=== PATIENT | male | born 1985 | race Caucasian/White ===

== ENCOUNTER 2016-05-30 14:22 | Emergency (ER) | payer MEDICAID ==
[~2016-05-30] VITALS: Wt 80.0 kg
--- NOTE | 2016-05-30 15:30 | ERD ---
ER Documentation Chief Complaint Date/Time DATE: 05/30/16 TIME: 15:29 Chief Complaint BILATERAL LEG PAIN AND LOW BACKPAIN FOR A MONTH. NO TRAUMA PER FAMILY HPI This patient is a 31-year-old male with history of long-standing diabetes type 2 and developmental delays presenting to the emergency department for intermittent tingling in bilateral feet which has been ongoing for 2 months. The mother's bring the patient and from his assisted. She denies any injury or loss of function of extremities. She denies any fevers, chills, nausea, vomiting, diarrhea or other symptoms ROS All systems reviewed and are negative except as per history of present illness. Medications Home Meds Active Scripts Gabapentin* (Gabapentin*) 400 Mg Capsule, 400 MG PO BID, #60 CAP Prov:ROSEANNA MARROQUIN PA-C 05/30/16 Allergies Allergies: Coded Allergies: aripiprazole (Verified Allergy, Unknown, 08/28/15) divalproex sodium (Verified Allergy, Unknown, 08/28/15) risperidone (Verified Allergy, Unknown, 08/28/15) PMhx/Soc History of Surgery: Yes (dental surgery done yesterday) Anesthesia Reaction: No Hx Psychiatric Problems: Yes (mental retardation) Hx Miscellaneous Medical Probl: Yes (DM) Hx Alcohol Use: No Hx Substance Use: No Hx Tobacco Use: No FmHx Noncontributory for chief complaint Physical Exam Vitals Vital Signs Date Time Temp Pulse Resp B/P Pulse Ox O2 Delivery O2 Flow Rate FiO2 05/30/16 14:30 98.2 103 20 129/72 98 Physical Exam INITIAL VITAL SIGNS: Reviewed by me. GENERAL: Alert and interactive. No acute distress. Developmental delays noted. HEAD: Head is normocephalic and atraumatic. EYES: EOMI. No scleral icterus. No conjunctival injection. ENT: Moist mucosa. NECK: Supple. Full range of motion. RESPIRATORY: Normal respiratory effort. Clear breath sounds bilaterally. No wheezing, rales, or rhonchi. CV: Regular rate and rhythm. Normal S1 S2. No S3 or S4. No murmurs. ABDOMEN: Soft, non-distended, non-tender. No guarding. No rebound. No masses. EXTREMITIES: No deformity. Atrophic lower extremities bilaterally. The patient has decreased feeling of the plantar surfaces bilaterally. There is no warmth or redness in bilateral upper or lower extremities. SKIN: Warm and dry. NEUROLOGIC: Alert and oriented x 4. Speech is normal. Moves all extremities equally. No motor or sensory deficits noted. Results 24 hrs Current Medications Medications (Trade) Dose Ordered Sig/Jordin Route PRN Reason Start Time Stop Time Status Last Admin Dose Admin Ketorolac Tromethamine (Toradol) 30 mg ONCE STAT IM 05/30/16 15:33 05/30/16 15:34 DC 05/30/16 15:55 Procedures/MDM 31-year-old male presents secondary to complaints of neuropathy symptoms in bilateral feet. The patient does have history of long-standing diabetes type 2. On physical examination the patient does not have any warmth or redness of bilateral upper or lower extremities. I have low suspicion for cellulitis or other emergent conditions. The patient's history and physical examination are consistent with diabetic peripheral neuropathy. I will prescribe the patient a trial of Neurontin which can be monitored and re-prescribed by his primary care physician if he sees fit. The mother agrees with the plan and diagnosis. All questions and concerns were addressed. The patient was hemodynamically stable for discharge. Departure Diagnosis: Primary Impression: Diabetic neuropathy Condition: Stable Additional Instructions: No mas mejor en 2-3 chong, regresar. Mas peor en 24 horas, regresear rapidamente. Ir a doctor primario in 5-7 chong. Usar instrucciones cuando alcira medicamento. ROSEANNA MARROQUIN PA-C May 30, 2016 15:30
[2016-05-30] MEDS ORDERED: GABA400C14 PO (15:31)
[2016-05-30] MEDS ORDERED: KETOROLAC 30 MG INJ IM STA (15:33)
== END 2016-05-30 16:30 | disposition home or self-care (01) ==
LOC: FTE 14:22
DX: E11.40 Type 2 diabetes mellitus with diabetic neuropathy, unspecified (principal)
CPT/HCPCS: 96372; J1885

== ENCOUNTER 2017-01-22 16:07 | Emergency (ER) | payer MEDICAID, OTHER ==
[~2017-01-22] VITALS: Ht 157.5 cm; Wt 90.0 kg
[~2017-01-22 16:07] MED LIST: GABA400C14 PO
[2017-01-22 16:10] VITALS: Ht 157.5 cm; Wt 90.0 kg
--- NOTE | 2017-01-22 17:26 | RADRPT ---
PROCEDURE: XR Chest. CLINICAL INDICATION: Cough. TECHNIQUE: Single frontal view. COMPARISON: None. FINDINGS: The lungs are clear. The heart size is normal. There is no pleural effusion. There is no pneumothorax. IMPRESSION: 1. Normal chest radiograph. RPTAT: QQ .Stephen Ireladn MD, Date Time Electronically viewed and signed by .Stephen Ireland MD, on 01/22/2017 17:26 .R/
[2017-01-22] MEDS ORDERED: FLUT9.9S NASAL (17:37)
[2017-01-22] MEDS ORDERED: POLY10DR19 BOTH EYES (17:38)
--- NOTE | 2017-01-22 17:46 | ERD ---
ER Documentation Chief Complaint Date/Time DATE: 01/22/17 TIME: 17:43 Chief Complaint COUGH AND CONGESTION W/ RN X 2 DAYS, BILAT EYE REDNESS/ITCHINESS HPI This patient is a 32-year-old male with past medical history of developmental delay brought in by his mother and his sister with concerns for bilateral eye redness with associated cough and congestion for the past 2 days. The patient lives in a group retirement and already was prescribed some antibiotic eyedrops that he started using today. No fevers, chills, or other symptoms reported currently. ROS All systems reviewed and are negative except as per history of present illness. Medications Home Meds Active Scripts Polymyxin B Sulfate-TMP* (Polymyxin B-TMP Eye Drops*) 10 Ml Drops, 1 DROP BOTH EYES QID for 7 Days, #1 BOT Prov:ROSEANNA MARROQUIN PA-C 01/22/17 Fluticasone Propionate (Flonase Allergy Relief) 9.9 Ml [place].susp, 1 SPRAY NASAL DAILY, #1 BOTTLE TO EACH NOSTRIL Prov:ROSEANNA MARROQUIN PA-C 01/22/17 Gabapentin* (Gabapentin*) 400 Mg Capsule, 400 MG PO BID, #60 CAP Prov:ROSEANNA MARROQUIN PA-C 05/30/16 Allergies Allergies: Coded Allergies: aripiprazole (Verified Allergy, Unknown, 01/22/17) divalproex sodium (Verified Allergy, Unknown, 01/22/17) risperidone (Verified Allergy, Unknown, 01/22/17) PMhx/Soc History of Surgery: Yes (dental surgery ) Anesthesia Reaction: No Hx Psychiatric Problems: Yes (mental retardation) Hx Miscellaneous Medical Probl: Yes (DM) Hx Alcohol Use: No Hx Substance Use: No Hx Tobacco Use: No Smoking Status: Never smoker Physical Exam Vitals Vital Signs Date Time Temp Pulse Resp B/P Pulse Ox O2 Delivery O2 Flow Rate FiO2 01/22/17 16:10 98.9 112 20 118/72 94 Physical Exam Const: Nontoxic, well-appearing male in no acute distress. Head: Atraumatic Eyes: Bilateral conjunctival injection. Extraocular movements intact bilaterally. ENT: Normal External Ears, Nose and Mouth. Neck: Full range of motion..~ No meningismus. Resp: No signs of respiratory distress. No retractions noted. Lungs were clear to auscultation bilaterally without crackles, wheezing, rales, or rhonchi. Cardio: Regular rate and rhythm, no murmurs Skin: No petechiae or rashes Ext: No cyanosis, or edema Neur: Awake and alert Psych: Normal Mood and Affect Procedures/MDM 32-year-old male presenting to the emergency department with complaints of cough , congestion, and bilateral eye redness. History and physical examination is consistent with a URI and conjunctivitis. Chest x-ray was ordered because the patient was slightly hypoxic at 94% on room air with a pulse of 112 bpm. I discussed this case with supervising physician, Dr. Jigar Roberts who agreed with the assessment, plan, and overall ED course. The patient was reevaluated and pulse ox increased to 95% on room air with pulse lowering to 108 bpm prior to discharge. The patient is stable for outpatient management with a prescription for Flonase and Polytrim eyedrops. I have low suspicion for pulmonary embolism, pneumothorax, pneumonia, or other emergent conditions at time of discharge. Close follow-up with the primary care physician was advised. Strict ear return precautions were discussed. Departure Diagnosis: Primary Impression: URI (upper respiratory infection) URI type: unspecified URI Qualified Code: J06.9 - Upper respiratory tract infection, unspecified type Additional Impression: Conjunctivitis Conjunctivitis type: unspecified Laterality: bilateral Qualified Code: H10.9 - Conjunctivitis of both eyes, unspecified conjunctivitis type Condition: Fair Patient Instructions: Conjunctivitis Caused by Infection, Preventing Common Respiratory Infections [facility] Usted se collazo hecho un examen mdico de control que le indica que no est en [place] condicin que requiera tratamiento urgente en el Departamento de Emergencia. Un estudio ms profundo y el tratamiento de velasco condicin pueden esperar sin ningn riesgo hasta que usted sea atendida/o en el consultorio de velasco mdico o [place] cl rubén. Es responsabilidad suya arreglar [place] erma para el seguimiento del [place]. MANEJO DE CONDICIONES NO URGENTES EN EL FUTURO 1) Si usted tiene un mdico de atencin primaria: Usted debera llamar a velasco mdico de atencin primaria antes de venir al departamento de emergencia. Despus de las horas de consultorio, velasco doctor o velasco asociado/a est disponible por telfono. El mdico o enfermero de rishi en el servicio telefnico puede asesorarle por dilip medio para atender el problema, o [place] contrario se puede programar [place] erma. 2) Si usted no tiene un mdico de atencin primaria: Llame al mdico o clnica de referencia que aparece abajo ashley las horas de consultorio para hacer [place] erma para que le vean. CLINICAS: [place] [phone] [facility] [phone] [place] [phone] [place] [phone] [facility] [place] [phone] [facility] [phone] Additional Instructions: No mas mejor en 2-3 chong, regresar. Mas peor en 24 horas, regresear rapidamente. Ir a doctor primario in 5-7 chong. Usar instrucciones cuando alcira medicamento. ROSEANNA MARROQUIN PA-C Jan 22, 2017 17:46
== END 2017-01-22 17:51 | disposition home or self-care (01) ==
LOC: FTE 16:07
DX: J06.9 Acute upper respiratory infection, unspecified (principal); H10.9 Unspecified conjunctivitis; E11.9 Type 2 diabetes mellitus without complications
CPT/HCPCS: 71010; Z7502

== ENCOUNTER 2017-09-11 18:37 | Emergency (ER) | END 2017-09-11 22:41 | disposition home or self-care (01) ==